=== PATIENT | female | born 1940 | race Caucasian/White ===

== ENCOUNTER 2018-01-29 01:30 | Emergency (ER) | payer MEDICARE, BC ==
[~2018-01-29] VITALS: Ht 167.6 cm; Wt 62.6 kg
[2018-01-29 01:50] VITALS: BP 138/66
[2018-01-29] MEDS ORDERED: DOXYCYCLINE MO100 MG ORAL (01:53)
[2018-01-29] MEDS ORDERED: BACITRACIN ZIN1 EACH TOPIC (01:53)
[2018-01-29] MEDS ORDERED: Bacitracin Oint UD TOPIC ONE (02:00)
[2018-01-29 02:05] VITALS: BP 138/66
--- NOTE | 2018-01-29 04:31 | Emergency Room Report ---
History of Present Illness General Chief Complaint: Animal Bite Source: Patient Present Illness HPI patient is a 77-year-old female who presented after increased the lower extremity pain after cat bite.The patient reports having mild pain. She reports her tetanus up-to-date. Patient stated that she was bitten by one around cats. 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 The patient is penicillin allergic. Patient reports having injury several hours prior to arrival.Injuries to the left lower extremity. Allergies: Coded Allergies: PENICILLIN G (Verified Allergy, Mild, 05/26/09) Patient History Last Menstrual Period: n/a Reviewed Nursing Documentation: PMH: Agreed; PSxH: Agreed Nursing Documentation-PMH Past Medical History: No Stated History Review of Systems All Other Systems: negative except mentioned in HPI Physical Exam Vital Signs Date Time Temp Pulse Resp B/P (MAP) Pulse Ox O2 Delivery O2 Flow Rate FiO2 01/29/18 01:43 98.0 81 16 138/66 95 Room Air 98.1 General Appearance: well appearing, no apparent distress, alert, GCS 15, non- toxic Head: normocephalic, atraumatic ENT: hearing grossly normal, normal voice Neck: full range of motion, supple Respiratory: no respiratory distress, speaking full sentences Cardiovascular #1: no edema Musculoskeletal: no calf tenderness Neurologic: alert, oriented x3, responsive, normal gait Psychiatric: mood/affect normal Skin: other - small puncture wound to posterior leg left side Medical Decision Making Diagnostic Impression: Primary Impression: Cat bite Additional Impression: Puncture wound ER Course Patient presented after animal bite. Differential diagnosis included was not limited to fracture, tendon injury, foreign body, among others. Patient has a benign exam and does not appear to require any further imaging or laboratory testing at this time. The patient is prescribed doxycycline for Bite. The patient's vaccines are up-to-date. The patient is advised of wound rechecked in 2 days. Patient is advised to return if signs of infection Last Vital Signs Date Time Temp Pulse Resp B/P (MAP) Pulse Ox O2 Delivery O2 Flow Rate FiO2 01/29/18 02:05 98.0 16 138/66 95 Room Air 98.1 01/29/18 01:50 71 Status: improved Disposition: HOME, SELF-CARE Condition: Stable Scripts Doxycycline Monohydrate* (DOXYCYCLINE MONOHYDRATE*) 100 Mg Capsule 100 MG ORAL Q12H, #14 CAP 0 Refills Prov: Ludin Mckeon 01/29/18 Bacitracin Zinc* (BACITRACIN ZINC*) 1 Each Packet 1 APPLIC TOPIC THREE TIMES A DAY, #20 PACKET Prov: Ludin Mckeon 01/29/18 Referrals: NOT CHOSEN IPA/,REFERRING (PCP) Patient Instructions: Animal Bite Ludin Mckeon January 29, 2018 04:31
== END 2018-01-29 02:05 | disposition home or self-care (01) ==
LOC: EMR 02:04
DX: S81.832A Puncture wound without foreign body, left lower leg, initial encounter (principal); W55.01XA Bitten by cat, initial encounter; Y92.9 Unspecified place or not applicable; Z88.0 Allergy status to penicillin
CPT/HCPCS: 99284